=== PATIENT | male | born 1960 | race Caucasian/White ===

== ENCOUNTER 2018-04-04 00:04 | Inpatient (IN) | payer SELFPAY ==
[~2018-04-04] VITALS: Ht 170.2 cm; Wt 85.3 kg
--- NOTE | 2018-04-04 00:15 | NUR ---
To room 1A. Patient BIB ambulance from [facility] DX: AMS. Last well known time unknown. Patient able to state first name only. Unable to answer any other questions. Follows simple commands such as squeeze RN's hands; buyer assistant weak. Seen and evaluated by Dr. Dougherty.
[2018-04-04 00:48] LABS: BASOPHILS # (AUTO) 0.1 K/uL (0.0-8.0); BASOPHILS % (AUTO) 0.6 % (0.0-2.0); HEMATOCRIT 45.1 % (36.7-47.1); HEMOGLOBIN 15.2 g/dL (12.5-16.3); MEAN CORPUSCULAR HEMOGLOBIN 30.9 uug (23.8-33.4); MEAN CORPUSCULAR HGB CONC 34 g/dL (32.5-36.3); MEAN CORPUSCULAR VOLUME 91.4 fL (73.0-96.2); MONOCYTES # (AUTO) 1.7 K/uL (2.0-10.0); MONOCYTES % (AUTO) 11.1 % (0.0-11.0); NEUTROPHILS # (AUTO) 11.5 K/uL (1.8-8.9); NEUTROPHILS % (AUTO) 75.3 % (38.5-71.5); PLATELET COUNT (AUTO) 281 K/uL (152-348); RED BLOOD CELL COUNT(AUTO) 4.93 MIL/uL (4.06-5.63); WHITE BLOOD COUNT (AUTO) 15.3 K/uL (3.6-10.2)
[2018-04-04 01:02] LABS: ALANINE AMINOTRANSFERASE 28 U/L (16-63); ALKALINE PHOSPHATASE 112 U/L (50-136); ASPARTATE AMINOTRANSFERASE 34 U/L (15-37); BILIRUBIN,DIRECT 0.2 mg/dL (0.0-0.2); CARBON DIOXIDE 25 mmol/L (21-32); CHLORIDE 109 mmol/L (98-107); GLUCOSE 148 mg/dL (74-106); POTASSIUM 3.8 mmol/L (3.5-5.1); TOTAL PROTEIN, SERUM 8.8 g/dL (6.4-8.2); UREA NITROGEN, BLOOD 29 mg/dL (7-18)
[2018-04-04 01:09] LABS: THYROID STIMULATING HORMONE 1.848 mIU/mL (0.358-3.740)
--- NOTE | 2018-04-04 01:30 | NUR ---
Merrill catherer F#16 inserted aseptically. Urine specimen obtained and sent to lab. Noted skin excoriation to perineal, scrotum and both groins.
--- NOTE | 2018-04-04 01:35 | NUR ---
Dr. Dougherty informed of skin excoriation. Skin care provided.
[2018-04-04] MEDS ORDERED: HALOPERIDOL LACTATE 5 MG/1 ML VIAL IV ONE (01:45)
[2018-04-04] MEDS ORDERED: IV NORMAL SALINE 1000 ML BAG IV ONE (01:45)
[2018-04-04] MEDS ORDERED: diphenhydrAMINE 50 MG/1 ML VIAL IV ONE (01:45)
--- NOTE | 2018-04-04 01:45 | NUR ---
Patient agitated; trying to get out of bed. Uses profanity. Safety and fall precautions maintained. Reoriented PRN. Dr. Dougherty aware. Medicated with Haldol and Benadryl IV.
[2018-04-04] MEDS ORDERED: diphenhydrAMINE 50 MG/1 ML VIAL ONE (01:46)
[2018-04-04] MEDS ORDERED: HALOPERIDOL LACTATE 5 MG/1 ML VIAL ONE (01:47)
[2018-04-04 01:50] LABS: ETHANOL < 3 MG/DL (0-0)
[2018-04-04 02:05] LABS: *BLOOD, URINE 1+ (NEGATIVE); *COLOR,URINE AMBER (YELLOW); *KETONES,URINE 1+ (NEGATIVE); *PROTEIN,URINE 2+ (NEGATIVE); *UROBILINOGEN,URINE 0.2 E.U./dl (NORMAL); LEUKOCYTE ESTERASE ,URINE NEGATIVE (NEGATIVE); NITRITE, URINE NEGATIVE (NEGATIVE); PH,URINE 5.5 (5.0-8.0); UGLUCOSE NEGATIVE (NEGATIVE)
[2018-04-04] MEDS ORDERED: ALBU8.5H8 IH (02:06)
[2018-04-04] MEDS ORDERED: RANI150T8 PO (02:06)
[2018-04-04] MEDS ORDERED: MULT-15 PO (02:06)
[2018-04-04] MEDS ORDERED: LORA10TA7 PO (02:06)
[2018-04-04] MEDS ORDERED: HALO5TAB PO (02:06)
[2018-04-04] MEDS ORDERED: OMEG1CAP40 PO (02:06)
[2018-04-04] MEDS ORDERED: DOCU100T PO (02:06)
[2018-04-04] MEDS ORDERED: FLUT16SP NS (02:06)
[2018-04-04] MEDS ORDERED: THIA100T13 PO (02:06)
[2018-04-04] MEDS ORDERED: QUET200T PO (02:06)
[2018-04-04] MEDS ORDERED: ASPI-605 PO (02:06)
[2018-04-04] MEDS ORDERED: POLY10DR3 OP (02:06)
[2018-04-04] MEDS ORDERED: MOME13HF IH (02:06)
[2018-04-04 02:07] LABS: *BILIRUBIN,URIN 1+ (NEGATIVE); *CLARITY,URINE HAZY (CLEAR)
--- NOTE | 2018-04-04 02:15 | NUR ---
Benadryl and Haldol effective.
[2018-04-04 02:24] LABS: BACTERIA,URINE NONE SEEN /HPF (NONE SEEN); RBC,URINE 0-3 /HPF (0-3); SQUAMOUS EPITHELIAL CELL,UR MODERATE /HPF (NONE SEEN)
[2018-04-04 02:25] LABS: MUCUS,URINE MANY /LPF (0-FEW)
[2018-04-04 02:30] LABS: *AMPHETAMINE, URINE NEGATIVE (NEGATIVE); *BARBITURATE, URINE NEGATIVE (NEGATIVE); *CANNABINOID, URINE NEGATIVE (NEGATIVE); *COCCAINE, URINE NEGATIVE (NEGATIVE); *OPIATE, URINE NEGATIVE (NEGATIVE); *PHENCYCLIDINE SCREEN,URINE NEGATIVE (NEGATIVE)
--- NOTE | 2018-04-04 02:40 | NUR ---
Dr. Johnson notified of patient's admission. Spoke with Dr. Dougherty. Will admit to Telemetry.
--- NOTE | 2018-04-04 03:04 | NUR ---
SBAR report given to Radhames BENITO.
--- NOTE | 2018-04-04 03:20 | NUR ---
Pt. admitted to 207, under care of Dr. Johnson. DX: AMS. Belongs List completed
[2018-04-04 04:00] VITALS: BP 155/67
[2018-04-04] MEDS ORDERED: HALOPERIDOL LACTATE 5 MG/1 ML VIAL IM ONE (04:30)
[2018-04-04] MEDS ORDERED: ONDANSETRON 4 MG/2 ML VIAL IV PRN (04:30)
--- NOTE | 2018-04-04 04:30 | NUR ---
In from ER via gurney, 57 y/o male patient admitted to Telemetry Dx. Altered Mental Status. Patient awake, confused & agitated, no SOB noted. phototypesetting equipment monitor applied, sinus tachy w/ HR 100 bpm on Tele. Vital signs WNL. Initial assessment done, severe redness on perineal/groin area noted, see picture in chart. Sponge bath provided, kept red vatheter in place & secured. Uncontrollable & uncooperative w/ care. Attempted to jump out of bed, patient stated "I'm hungry I want to go home". Offered tuna sandwich & juice, patient tolerated. Patient became more agitated & combative post meal. Uncontrollable behavior noted, HR 150- 180s, attempted to jump out of bed, stating he want to smoke. Paged Dr. Johnson for admission orders, & notified about patient's current behavior. Orders received. Haldol 2.5 mg IM administered & monitored, O2 2 L/NC applied. Safety precaution observed.
--- NOTE | 2018-04-04 05:44 | NUR ---
Patient asleep at this time, A-fib 120's on the monitor. MD notified, to do further orders in AM.
[2018-04-04 06:20] LABS: BASOPHILS % (AUTO) 0.4 % (0.0-2.0); EOSINOPHILS % (AUTO) 0.1 % (0.0-7.0); HEMATOCRIT 42.4 % (36.7-47.1); HEMOGLOBIN 14.1 g/dL (12.5-16.3); LYMPHOCYTES # (AUTO) 1.8 K/uL (20.0-40.0); LYMPHOCYTES % (AUTO) 14.3 % (20.5-51.5); MEAN CORPUSCULAR HEMOGLOBIN 30.4 uug (23.8-33.4); MEAN CORPUSCULAR HGB CONC 33 g/dL (32.5-36.3); MEAN CORPUSCULAR VOLUME 91.7 fL (73.0-96.2); MONOCYTES # (AUTO) 1.5 K/uL (2.0-10.0); MONOCYTES % (AUTO) 11.9 % (0.0-11.0); NEUTROPHILS # (AUTO) 9.1 K/uL (1.8-8.9); NEUTROPHILS % (AUTO) 73.3 % (38.5-71.5); PLATELET COUNT (AUTO) 246 K/uL (152-348); RED BLOOD CELL COUNT(AUTO) 4.62 MIL/uL (4.06-5.63); WHITE BLOOD COUNT (AUTO) 12.4 K/uL (3.6-10.2)
[2018-04-04 06:32] LABS: CREATININE 1.2 mg/dL (0.6-1.3); MAGNESIUM 2.3 mg/dL (1.8-2.4); PHOSPHOROUS 2.7 mg/dL (2.5-4.9); POTASSIUM 3.1 mmol/L (3.5-5.1)
--- NOTE | 2018-04-04 06:42 | NUR ---
Patient awake now, agitated trying to jump out of bed. High risk for fall patient needs 1:1 sitter for patient's safety.
[2018-04-04] MEDS ORDERED: HALOPERIDOL 5 MG TABLET PO PRN (07:30)
[2018-04-04] MEDS ORDERED: ALBUTEROL SULFATE 2.5 MG/3 ML NEBU NEB PRN (07:30)
[2018-04-04] MEDS ORDERED: DOCUSATE SODIUM 100 MG CAPSULE PO PRN (07:30)
[2018-04-04] MEDS ORDERED: HOME MED MISCELLANEOUS XX SCH ×2 (07:30)
[2018-04-04] MEDS: OMEGA-3 FATTY ACIDS/FISH OIL CAPSULE PO SCH (07:49)
[2018-04-04] MEDS: LORATADINE 10 MG TABLET PO SCH (07:49)
[2018-04-04] MEDS: FAMOTIDINE 20 MG TABLET PO SCH ×2 (07:49→20:15)
[2018-04-04] MEDS: MULTIVITAMINS,THERAPEUTIC TABLET PO SCH (07:49)
[2018-04-04] MEDS: QUETIAPINE FUMARATE 200 MG TABLET PO SCH ×2 (07:49→20:15)
[2018-04-04] MEDS: ASPIRIN EC 81 MG TABLET.DR PO SCH (07:49)
[2018-04-04] MEDS: Z GUARD REMEDY PASTE 57 GM TUBE TOP SCH ×2 (07:50→19:44)
[2018-04-04] MEDS: THIAMINE HCL 100 MG TABLET PO SCH (07:50)
--- NOTE | 2018-04-04 08:31 | NUR ---
12 LEAD EKG DONE FOR HR 140-150/MIN. ekg confriemed rapid atrial fib, call to Dr Johnson. orders received. patient status changed to FRED. Addendum: 04/04/18 at 0831 by GREYSON JACKMAN RN Amended: Links added.
[2018-04-04] MEDS ORDERED: DILTIAZEM HCL 25 MG IV IV ONE ×2 (08:45→11:30)
--- NOTE | 2018-04-04 08:52 | NUR ---
cardizem 5 mg IV given. for hr 140 afib Addendum: 04/04/18 at 0852 by GREYSON JACKMAN RN Amended: Links added.
--- NOTE | 2018-04-04 08:53 | NUR ---
main IV fluid 1/2 NS started at 55 ml/hr via left wrist IV
[2018-04-04] MEDS ORDERED: DILTIAZEM HCL 60 MG TABLET PO SCH ×2 (09:00→14:00)
--- NOTE | 2018-04-04 09:00 | NUR ---
seen by dr de la cruz/ orders received.
[2018-04-04] MEDS: POTASSIUM CHLORIDE 50 ML IV SCH ×2 (09:09→10:27)
[2018-04-04] MEDS: IV 1/2NS 1000 ML 1,000 ML IV PRN (09:09)
[2018-04-04] MEDS: FLUTICASONE PROP NASAL SPRAY 16 GM BOTTLE NS SCH (09:10)
--- NOTE | 2018-04-04 09:30 | NUR ---
k replacement total 20meq kcl started for k 3.1 Addendum: 04/04/18 at 0930 by GREYSON JACKMAN RN Amended: Links added.
--- NOTE | 2018-04-04 11:24 | NUR ---
heart monitor remains afib with rvr up to 150/min. several calls to Dr Johnson made but unable to get through. charge nurse Anatoliy noel. will access [facility] cell phone if possible. Nando Harry and Salomón assistant housekeeping manager made aware as well. Addendum: 04/04/18 at 1125 by GREYSON JACKMAN RN Amended: Links added.
--- NOTE | 2018-04-04 11:38 | NUR ---
dr de la cruz called back . orders received for Cardzem 10mg IV and to call dr Gerard for cardiac consult. dr bowles called and order received for amiodarone bolus and drip per protocol Addendum: 04/04/18 at 1138 by GREYSON JACKMAN RN Amended: Links added.
[2018-04-04] MEDS ORDERED: AMIODARONE HCL IV 150 MG in IV DEXTROSE 5% 100 ML IV ONE (11:45)
[2018-04-04] MEDS ORDERED: AMIODARONE HCL IV 900 MG in IV DEXTROSE 5% 482 ML IV PRN (11:45)
--- NOTE | 2018-04-04 12:30 | NUR ---
IV left wrist leaking/removed. another IV#20 inserted via left hand. Addendum: 04/04/18 at 1313 by GREYSON JACKMAN RN Amended: Links added. Addendum: 04/04/18 at 1315 by GREYSON JACKMAN RN Amended: Links added.
--- NOTE | 2018-04-04 12:42 | NUR ---
cardizem 10 mg given IV for persistent afibv flutter. Addendum: 04/04/18 at 1312 by GREYSON JACKMAN RN Amended: Links added. Addendum: 04/04/18 at 1313 by GREYSON JACKMAN RN Amended: Links added. Addendum: 04/04/18 at 1315 by GREYSON JACKMAN RN Amended: Links added.
--- NOTE | 2018-04-04 12:45 | NUR ---
amiodarone 150mg IV bolus given IV and followed by drip 1mg/min Addendum: 04/04/18 at 1315 by GREYSON JACKMAN RN Amended: Links added.
[2018-04-04] MEDS ORDERED: NORMAL SALINE FLUSH 10 ML DISP.SYRIN IV PRN (13:30)
--- NOTE | 2018-04-04 13:35 | NUR ---
CONVERTED BACK TO SINUS RHYTHM 120/70/hr 87. AMIODARONE DRIP CONTINUED AT 1MG/MIN Addendum: 04/04/18 at 1737 by GREYSON JACKMAN RN Amended: Links added.
--- NOTE | 2018-04-04 13:39 | NUR ---
WOUND CARE CONSULT: PT PRESENTS WITH RED RASH TO GROIN FOLDS AND PERINEUM, PRESENT ON ADMISSION. PT HAS LARIOS CATH. RECOMMENDATIONS MADE FOR SKIN CARE AND PROTECTION. DISCUSSED WITH NURSING STAFF. WILL SEE PRN. LEAL IN AGREEMENT WITH PLAN OF CARE. Addendum: 04/04/18 at 1341 by JOHN GODOY RN Amended: Links added.
[2018-04-04] MEDS: NORMAL SALINE FLUSH 10 ML DISP.SYRIN IV SCH ×2 (13:49→20:15)
--- NOTE | 2018-04-04 15:04 | NUR ---
new PICC line inserted via juan antonio by Hailey PICC line THONG. placement confirmed with a chest xray
[2018-04-04] MEDS: FLUTICASONE/VILANTEROL 1 EACH BLST.W.DEV INH SCH (15:24)
[2018-04-04] MEDS: CLOTRIMAZOLE/BETAMET DIPROP CREAM 15 GM TUBE TOP SCH ×2 (15:24→19:46)
[2018-04-04 16:00] VITALS: BP 122/71
--- NOTE | 2018-04-04 18:54 | NUR ---
amiodarone drip decreased down to 0.5mg/min per protocol
--- NOTE | 2018-04-04 19:13 | NUR ---
SHIFT REPORT given to Татьяна RN Addendum: 04/04/18 at 1913 by GREYSON JACKMAN RN Amended: Links added.
[2018-04-04 20:00] VITALS: BP 133/75
--- NOTE | 2018-04-04 20:00 | NUR ---
Received patient resting in bed, calmer at this time but still attempting removing IV lines. No distress noted. Patient currently Sinus rhythm 70's on the monitor, on Cordarone drip 0.5mg/min per protocol via right upper arm PICC line. Vital signs WNL. 1:1 sitter in room for patient's safety.
[2018-04-04] MEDS: ACETAMINOPHEN 325 MG TABLET PO PRN (20:15)
--- NOTE | 2018-04-04 21:30 | NUR ---
Awake & agitated, routine Seroquel night meds given.
[2018-04-05] VITALS (8 sets, daily range): BP systolic 119–160; BP diastolic 68–95
[2018-04-05] MEDS: NORMAL SALINE FLUSH 10 ML DISP.SYRIN IV SCH ×3 (06:22→21:08)
--- NOTE | 2018-04-05 06:26 | NUR ---
Patient resting comfortably, sinus rhythm on the monitor. Amiodarone drip per protocol to end at 11:30 Am today. Vital signs are stable.
[2018-04-05 07:59] LABS: BASOPHILS # (AUTO) 0.1 K/uL (0.0-8.0); BASOPHILS % (AUTO) 0.8 % (0.0-2.0); EOSINOPHILS % (AUTO) 0.3 % (0.0-7.0); HEMATOCRIT 38.9 % (36.7-47.1); HEMOGLOBIN 12.9 g/dL (12.5-16.3); LYMPHOCYTES # (AUTO) 1.3 K/uL (20.0-40.0); MEAN CORPUSCULAR HEMOGLOBIN 31.1 uug (23.8-33.4); MEAN CORPUSCULAR HGB CONC 33 g/dL (32.5-36.3); MEAN CORPUSCULAR VOLUME 93.8 fL (73.0-96.2); MONOCYTES # (AUTO) 0.7 K/uL (2.0-10.0); MONOCYTES % (AUTO) 8.8 % (0.0-11.0); NEUTROPHILS # (AUTO) 5.5 K/uL (1.8-8.9); NEUTROPHILS % (AUTO) 73.1 % (38.5-71.5); PLATELET COUNT (AUTO) 216 K/uL (152-348); RED BLOOD CELL COUNT(AUTO) 4.14 MIL/uL (4.06-5.63); WHITE BLOOD COUNT (AUTO) 7.6 K/uL (3.6-10.2)
[2018-04-05 08:09] LABS: CREATININE 0.8 mg/dL (0.6-1.3); POTASSIUM 3.8 mmol/L (3.5-5.1)
[2018-04-05] MEDS: FLUTICASONE PROP NASAL SPRAY 16 GM BOTTLE NS SCH (08:14)
[2018-04-05] MEDS: OMEGA-3 FATTY ACIDS/FISH OIL CAPSULE PO SCH (08:14)
[2018-04-05] MEDS: ASPIRIN EC 81 MG TABLET.DR PO SCH (08:14)
[2018-04-05] MEDS: FLUTICASONE/VILANTEROL 1 EACH BLST.W.DEV INH SCH (08:14)
[2018-04-05] MEDS: QUETIAPINE FUMARATE 200 MG TABLET PO SCH ×2 (08:14→20:03)
[2018-04-05] MEDS: THIAMINE HCL 100 MG TABLET PO SCH (08:14)
[2018-04-05] MEDS: LORATADINE 10 MG TABLET PO SCH (08:14)
[2018-04-05] MEDS: FAMOTIDINE 20 MG TABLET PO SCH ×2 (08:14→20:03)
[2018-04-05] MEDS: MULTIVITAMINS,THERAPEUTIC TABLET PO SCH (08:15)
[2018-04-05] MEDS: Z GUARD REMEDY PASTE 57 GM TUBE TOP SCH ×2 (08:15→20:03)
[2018-04-05] MEDS: CLOTRIMAZOLE/BETAMET DIPROP CREAM 15 GM TUBE TOP SCH ×2 (08:16→20:03)
[2018-04-05] MEDS: IV 1/2NS 1000 ML 1,000 ML IV PRN (10:35)
[2018-04-05] MEDS ORDERED: diphenhydrAMINE 25 MG CAP PO PRN (20:00)
--- NOTE | 2018-04-05 20:00 | NUR ---
Received patient laying comfortably in bed. No acute distress noted. Patient is awake but pleasantly confused. He is on RA. TELE SR at 70. Noted facial redness. Merrill cath draining yellow clear urine. Noted perineal redness. Safety initiated. Call light within reach. Per AM nurse, patient is able to walk to the restroom with 1 person assist. Unsteady gait. Room is left clutter free. Bed in low and locked position. Bed alarm on. Will closely monitor.
--- NOTE | 2018-04-05 20:00 | NUR ---
PATIENT AWAKE IN BED. ALERT TO SELF ONLY. CONFUSED AND DISORIENTED, BUT PLEASANT WHEN APPROACHED. COOPERATIVE WITH CARE. NEEDS REDIRECTION BUT ABLE TO FOLLOW SIMPLE DIRECTIONS WELL. 1:1 SITTER AT BEDSIDE FOR SAFETY. RECHECKED PATIENTS BLOOD PRESSURE 147/91. ALL OTHER VSS. PATIENT DENIES PAIN OR DISCOMFORT. NO FACIAL GRIMACE NOTED. ON TELE SR. NO SOB NOTED. ON RA SATING 95%. F/C INTACT AND PATENT, DRAINING YELLOW URINE. HEPLOCK NOTED TO LEFT HAND, SWOLLEN, RED AND INFILTRATED. REMOVED. PATIENT IS PICC LINE NOTED TO LEFT UPPER ARM, INTACT, COVERED, PER RN. BED ALARM ON. CALL LIGHT IN REACH. DVT PUMPS IN PLACE. ALL NEEDS ATTENDED. WILL CONTINUE TO MONITOR AND ASSESS. Addendum: 04/05/18 at 2045 by BRE KELLY LVN *CLARIFICATION-PATIENT "HAS" PICC LINE...
--- NOTE | 2018-04-05 20:00 | NUR ---
PICC line double lumen on the right upper arm, flushing well. Patent and intact.
[2018-04-05] MEDS: HALOPERIDOL 5 MG TABLET PO PRN (22:46)
--- NOTE | 2018-04-05 23:00 | NUR ---
Patient was restless. He states pain on the penile area. Red care provided. Removed red because it was not draining and patient kept complaining of pain. Re-inserted a new red. Tolerated well. Will continue to monitor.
[2018-04-06] MEDS: ACETAMINOPHEN 325 MG TABLET PO PRN ×2 (00:45→07:53)
[2018-04-06 04:06] VITALS: BP 136/85
--- NOTE | 2018-04-06 05:51 | NUR ---
Patient slept intermittently t/o shift. 1:1 sitter at bedside. Merrill was removed because patient expressed discomfort not relieved by pain medication. DW charge Nurse. Patient is urinating well on the urinal. The patient remains pleasantly confused. TELE SR. PICC line on the right upper arm patent and intact. Turned and repositioned Q2H, perineal care provided. Vital signs stable. Safety and comfort measures maintained t/o shift. All meds given as ordered. All needs met.
[2018-04-06] MEDS: NORMAL SALINE FLUSH 10 ML DISP.SYRIN IV SCH ×3 (05:58→22:21)
[2018-04-06] MEDS: QUETIAPINE FUMARATE 200 MG TABLET PO SCH ×2 (07:53→20:54)
[2018-04-06] MEDS: OMEGA-3 FATTY ACIDS/FISH OIL CAPSULE PO SCH (07:53)
[2018-04-06] MEDS: MULTIVITAMINS,THERAPEUTIC TABLET PO SCH (07:53)
[2018-04-06] MEDS: THIAMINE HCL 100 MG TABLET PO SCH (07:53)
[2018-04-06] MEDS: LORATADINE 10 MG TABLET PO SCH (07:53)
[2018-04-06] MEDS: ASPIRIN EC 81 MG TABLET.DR PO SCH (07:54)
[2018-04-06 08:00] VITALS: BP 157/96
[2018-04-06] MEDS: FLUTICASONE/VILANTEROL 1 EACH BLST.W.DEV INH SCH (08:00)
[2018-04-06] MEDS: FLUTICASONE PROP NASAL SPRAY 16 GM BOTTLE NS SCH (08:01)
[2018-04-06] MEDS: FAMOTIDINE 20 MG TABLET PO SCH ×2 (08:03→20:53)
[2018-04-06] MEDS: Z GUARD REMEDY PASTE 57 GM TUBE TOP SCH ×2 (08:19→20:54)
[2018-04-06] MEDS: CLOTRIMAZOLE/BETAMET DIPROP CREAM 15 GM TUBE TOP SCH ×2 (08:19→20:54)
[2018-04-06 11:52] VITALS: BP 116/76
[2018-04-06 16:00] VITALS: BP 152/90
[2018-04-06] MEDS: DILTIAZEM HCL CD 120 MG CAP.SR.24H PO SCH (16:38)
--- NOTE | 2018-04-06 19:20 | NUR ---
RECEIVED SHIFT REPORT FROM THONG VÁZQUEZ. PT RESTING IN BED. DENIES PAIN, C/P, SOB, N/V. PT IS NSR ON TELE MONITORING. PT HAS A SINGLE LUMEN PICC LINE, SALINE LOCKED, RUE. BED IN LOW AND LOCKED POSITION WITH BILATERAL UPPER SIDERAILS UP. CALL LIGHT WITHIN REACH. 1:1 SITTER AT BEDSIDE FOR SAFETY. WILL CONTINUE TO MONITOR.
[2018-04-06 19:27] VITALS: BP 129/78
[2018-04-07 00:43] VITALS: BP 132/79
[2018-04-07] MEDS: HALOPERIDOL 5 MG TABLET PO PRN (02:06)
--- NOTE | 2018-04-07 02:10 | NUR ---
NOTIFIED BY 1:1 SITTER, JONE ENNIS, PT PULLED OUT RUE PICC LINE. UPON ASSESSMENT, RUE DOUBLE LUMEN PICC LINE PULLED OUT BY PT. PRESSURE APPLIED TO PICC LINE SITE, NO BLEEDING NOTED. PICC LINE TIP INTACT UPON ASSESSMENT. PT IS AGITATED AND VERBALLY AGGRESSIVE. PRN HALDOL ADMIN FOR AGITATION. 1:1 SITTER NOTIFIED TO MONITOR PT CLOSELY FOR SAFETY PRECAUTIONS. APPROPRIATE PERSONNEL NOTIFIED.
[2018-04-07] MEDS: NORMAL SALINE FLUSH 10 ML DISP.SYRIN IV SCH ×2 (05:27→13:05)
[2018-04-07 06:54] VITALS: BP 155/89
--- NOTE | 2018-04-07 07:00 | NUR ---
NOTIFIED DR. CRUZ PT PULLED OUT PICC LINE. PT RESTING IN BED. NO SIGNS OF BLEEDING FROM PICC LINE SITE. BED IN LOW AND LOCKED POSITION WITH BILATERAL UPPER SIDERAILS UP. CALL LIGHT WITHIN REACH. 1:1 SITTER AT BEDSIDE.
[2018-04-07] MEDS ORDERED: CLOT15CR36 TOP (07:29)
[2018-04-07] MEDS ORDERED: DILT-32 PO (07:29)
[2018-04-07] MEDS ORDERED: MENT71OI TOP (07:29)
--- NOTE | 2018-04-07 07:32 | NUR ---
Patient resting comfortably in bed at this time. Sitter at bedside for safety. No IV-access at this time, MD aware. Discharge today. Reorientation will be provided. Stable condition. No s/s of distress. SR on telemetry. Bed in locked/low position, side rails upx2, bed alarm on. Will monitor throughout shift.
[2018-04-07 07:34] VITALS: BP 161/90
[2018-04-07] MEDS: FLUTICASONE PROP NASAL SPRAY 16 GM BOTTLE NS SCH (08:10)
[2018-04-07] MEDS: FLUTICASONE/VILANTEROL 1 EACH BLST.W.DEV INH SCH (08:10)
[2018-04-07] MEDS: THIAMINE HCL 100 MG TABLET PO SCH (08:11)
[2018-04-07] MEDS: QUETIAPINE FUMARATE 200 MG TABLET PO SCH (08:11)
[2018-04-07] MEDS: OMEGA-3 FATTY ACIDS/FISH OIL CAPSULE PO SCH (08:11)
[2018-04-07] MEDS: LORATADINE 10 MG TABLET PO SCH (08:11)
[2018-04-07] MEDS: FAMOTIDINE 20 MG TABLET PO SCH (08:11)
[2018-04-07] MEDS: Z GUARD REMEDY PASTE 57 GM TUBE TOP SCH (08:12)
[2018-04-07] MEDS: CLOTRIMAZOLE/BETAMET DIPROP CREAM 15 GM TUBE TOP SCH (08:12)
[2018-04-07] MEDS: MULTIVITAMINS,THERAPEUTIC TABLET PO SCH (08:12)
[2018-04-07] MEDS: ASPIRIN EC 81 MG TABLET.DR PO SCH (08:12)
[2018-04-07] MEDS: DILTIAZEM HCL CD 120 MG CAP.SR.24H PO SCH (08:12)
[2018-04-07 12:19] VITALS: BP 158/84
[2018-04-07 14:15] VITALS: BP 117/75
--- NOTE | 2018-04-07 14:40 | NUR ---
PATIENT DISCHARGED AT THIS TIME BACK TO [facility]. VITALS STABLE, NO S/S OF DISTRESS. DISCHARGE PACKET COMPLETED, DISCHARGE INSTRUCTIONS/EDUCATION PROVIDED. NEW PRESCRIPTION PROVIDED TO PATIENT PER MD ORDERS. NO-ACCESS TO BE DISCONNECTED, IV BAND TAKEN OFF. BELONGINGS RETURNED. SAFETY MEASURES IMPLEMENTED. PATIENT TRANSPORTED OUT OF FACILITY TO [facility] BY PRIVATE TRANSPORTATION PROVIDED BY [facility]. PATIENT LEFT MEDICAL PREMISES SAFELY.
--- NOTE | 2018-04-07 14:41 | NUR ---
Patient was discharged to [facility] via private transportation. plant ecologist was discontinued. Patient is awake, alert and oriented. In no acute distress. Denies chest pain or SOB at this time. Discharge instructions given to patient, prescriptions, and discharge paperworks given to patient. Left the hospital in stable condition.
== END 2018-04-07 17:00 | DRG 640 ==
LOC: ER 00:13 → TELE 02:34 → TELE-TD 08:35 → TELE 04-05 13:29 → MED 04-07 14:48
PROVIDERS: ADMIT Internal Medicine; ATTEND Internal Medicine
PROC: 02HV33Z Insertion of Infusion Device into Superior Vena Cava, Percutaneous Approach (ICD-10-PCS; principal; 2018-04-04)
DX: E86.0 Dehydration (principal); G93.41 Metabolic encephalopathy; F03.91 Unspecified dementia, unspecified severity, with behavioral disturbance; F05 Delirium due to known physiological condition; I48.0 Paroxysmal atrial fibrillation; R41.82 Altered mental status, unspecified; I10 Essential (primary) hypertension; Z79.51 Long term (current) use of inhaled steroids; J44.9 Chronic obstructive pulmonary disease, unspecified
CPT/HCPCS: 36415; 70030-TC; 70450; 71045; 80307; 83605; 83735; 84100; 84443; 85025; 85730; 87040; 87086; 93005; 93307; 97116; 97530; A4663; C1751; G0480; J0282; J1200; J1630; J3480; J3490; J3535; J7030; J7060; Q0163

== ENCOUNTER 2018-06-11 12:59 | Inpatient (IN) | payer MEDICAID, OTHER ==
[~2018-06-11] VITALS: Ht 170.2 cm; Wt 80.3 kg
[~2018-06-11 12:59] MED LIST: ALBU8.5H8 IH; ASPI-605 PO; CLOT15CR36 TOP; DILT-32 PO; DOCU100T PO; FLUT16SP NS; HALO5TAB PO; LORA10TA7 PO; MENT71OI TOP; MOME13HF IH; MULT-15 PO; OMEG1CAP40 PO; QUET200T PO; RANI150T8 PO; THIA100T13 PO
[2018-06-11 13:31] LABS: BASOPHILS # (AUTO) 0.1 K/uL (0.0-8.0); BASOPHILS % (AUTO) 0.5 % (0.0-2.0); EOSINOPHILS % (AUTO) 0.2 % (0.0-7.0); HEMATOCRIT 46.7 % (36.7-47.1); HEMOGLOBIN 15.5 g/dL (12.5-16.3); LYMPHOCYTES # (AUTO) 1.6 K/uL (20.0-40.0); LYMPHOCYTES % (AUTO) 14.3 % (20.5-51.5); MEAN CORPUSCULAR HEMOGLOBIN 31.3 uug (23.8-33.4); MEAN CORPUSCULAR HGB CONC 33 g/dL (32.5-36.3); MEAN CORPUSCULAR VOLUME 94.3 fL (73.0-96.2); MONOCYTES # (AUTO) 1.3 K/uL (2.0-10.0); MONOCYTES % (AUTO) 10.9 % (0.0-11.0); NEUTROPHILS # (AUTO) 8.5 K/uL (1.8-8.9); NEUTROPHILS % (AUTO) 74.1 % (38.5-71.5); PLATELET COUNT (AUTO) 298 K/uL (152-348); RED BLOOD CELL COUNT(AUTO) 4.95 MIL/uL (4.06-5.63); WHITE BLOOD COUNT (AUTO) 11.5 K/uL (3.6-10.2)
[2018-06-11 13:39] LABS: POTASSIUM 3.7 mmol/L (3.5-5.1)
[2018-06-11 13:44] LABS: BILIRUBIN,DIRECT 0.1 mg/dL (0.0-0.2); BILIRUBIN,TOTAL 0.5 mg/dL (0.2-1.0); TOTAL PROTEIN, SERUM 8.4 g/dL (6.4-8.2)
[2018-06-11 13:45] LABS: *BILIRUBIN,URIN NEGATIVE (NEGATIVE); *BLOOD, URINE 2+ (NEGATIVE); *KETONES,URINE NEGATIVE (NEGATIVE); *PROTEIN,URINE 1+ (NEGATIVE); *UROBILINOGEN,URINE 0.2 E.U./dl (NORMAL); LEUKOCYTE ESTERASE ,URINE NEGATIVE (NEGATIVE); NITRITE, URINE NEGATIVE (NEGATIVE); PH,URINE 5.5 (5.0-8.0); UGLUCOSE NEGATIVE (NEGATIVE)
[2018-06-11 13:46] LABS: *CLARITY,URINE SLIGHTLY HAZY (CLEAR); *COLOR,URINE DARK YELLOW (YELLOW)
[2018-06-11 13:57] LABS: BACTERIA,URINE NONE SEEN /HPF (NONE SEEN); MUCUS,URINE FEW /LPF (0-FEW); SQUAMOUS EPITHELIAL CELL,UR MODERATE /HPF (NONE SEEN); WBC,URINE 0-3 /HPF (0-3)
[2018-06-11 13:58] LABS: URINE AMORPHOUS URATE FEW /HPF
--- NOTE | 2018-06-11 14:35 | NUR ---
PT OUT OF ER FOR CT.
[2018-06-11] MEDS ORDERED: VANCOMYCIN IV 1,000 MG in IV DEXTROSE 5% 250 ML IV ONE (15:15)
[2018-06-11] MEDS ORDERED: CEFTRIAXONE 2 G in IV DEXTROSE 5% 100 ML IV ONE (15:15)
[2018-06-11] MEDS ORDERED: LORAZEPAM 2 MG/1 ML VIAL IV ONE ×2 (15:15)
[2018-06-11] MEDS ORDERED: IV NORMAL SALINE 1000 ML BAG IV ONE (15:45)
[2018-06-11 16:03] LABS: ABG BASE EXCESS 2.9 mmol/L; ABG HCO3 27.6 mmol/L; ABG PCO2 42.4 mmHg (35.0-45.0); ABG PH 7.431 (7.350-7.450); ABG PO2 83.2 mmHg (75.0-100.0); ABG SITE LEFT RADIAL; ABG TOTAL HEMOGLOBIN 15.2 G/dL (13.5-18.0); COHb 1.5 % (0.5-1.5); MetHb 0.3 % (0.0-1.5); O2Hb 95.2 % (94.0-97.0)
[2018-06-11] MEDS ORDERED: LORAZEPAM 2 MG/1 ML VIAL ONE ×2 (16:12→16:19)
--- NOTE | 2018-06-11 16:12 | NUR ---
ROCEPHIN INFUSION CPOMPLETED AT 1600.
[2018-06-11] MEDS ORDERED: CEFTRIAXONE 1 G VIAL ONE (16:24)
[2018-06-11] MEDS ORDERED: VANCOMYCIN IV 200 ML ONE (16:29)
[2018-06-11 17:00] LABS: CSF GLUCOSE 93 mg/dL (40-70); CSF PROTEIN 52 mg/dL (15-45)
--- NOTE | 2018-06-11 17:15 | NUR ---
NEW PATIENT FROM ER TO ROOM 210 VS TAKEN STILL HIGH BP BUT NO FEVER ,RESPONSE TO PAIN STIMULI , OPEN EYE WHEN CALL OR TOUCH BUT NON VERBALIZES GEN VERY WEAK AND PALE SMALL BANDAGE AT LOWER BACK FROM SPINAL TAP WAS D/I KEEP FLAT IN BED ON ASPIRATION AND FALL PRECAUTION BED ALARM ON AND CALL LIGHT WITHIN REACH CLOSED OBSERVATION
[2018-06-11 17:30] VITALS: BP 166/104
--- NOTE | 2018-06-11 18:00 | NUR ---
DR GUILLEN WAS CALL AND MESSAGE LEFT FOR ORDERS
--- NOTE | 2018-06-11 18:40 | NUR ---
DR GUILLEN CALL BACK AND ORDER IN CHART IVF CONTINUE FROM ER LFA INFUSION WELL
[2018-06-11] MEDS ORDERED: HALOPERIDOL 5 MG TABLET PO PRN (19:00)
[2018-06-11] MEDS ORDERED: ALBUTEROL SULFATE 8 GM HFA.AER.AD IH PRN (19:00)
[2018-06-11] MEDS: QUETIAPINE FUMARATE 200 MG TABLET PO SCH (19:00)
[2018-06-11] MEDS ORDERED: Medication Not On Formulary EA (Docusate Sodium (Dok TABLET) 100 MG) PO PRN (19:00)
[2018-06-11] MEDS ORDERED: ALBUTEROL SULFATE 2.5 MG/3 ML NEBU NEB PRN (19:15)
[2018-06-11] MEDS ORDERED: DOCUSATE SODIUM 100 MG CAPSULE PO PRN (19:15)
[2018-06-11 20:07] VITALS: BP 132/83
--- NOTE | 2018-06-11 20:45 | NUR ---
Received pt resting in bed semi-fowlers position. Pt nonverbal, arousable to name call and touch. O2 sat 98% on 2L NC. Pt shows no s/s of acute distress. IV on left hand SL 22g intact. Night time PO medications held due to potential aspiration. Speech evaluation order acknowledged. Droplet precautions initiated. Environmental safety check. Bed on low locked position, side rails up x2. Call light within reach. Will monitor closely.
[2018-06-11] MEDS: FAMOTIDINE 20 MG TABLET PO SCH (21:00)
[2018-06-12 04:00] VITALS: BP 166/89
[2018-06-12] MEDS ORDERED: NITROGLYCERIN OINT 1 GM PACKET TP ONE (06:15)
--- NOTE | 2018-06-12 06:15 | NUR ---
Pt BP 177/95, HR 89. Dr. Chiquita MD notified. Pt shows no signs of acute distress at this time. Awaiting orders. Will continue to monitor closely.
--- NOTE | 2018-06-12 06:30 | NUR ---
Received order of Nitroglycerin ointment 1 inch one time dose from Dr. Chiquita MD. Administered medication as prescribed. Will continue to monitor closely.
[2018-06-12 06:41] LABS: BASOPHILS % (AUTO) 0.6 % (0.0-2.0); EOSINOPHILS # (AUTO) 0.1 K/uL (0.0-0.7); LYMPHOCYTES # (AUTO) 1.8 K/uL (20.0-40.0); LYMPHOCYTES % (AUTO) 23.1 % (20.5-51.5); MEAN CORPUSCULAR HEMOGLOBIN 31.7 uug (23.8-33.4); MEAN CORPUSCULAR HGB CONC 34 g/dL (32.5-36.3); MEAN CORPUSCULAR VOLUME 94.4 fL (73.0-96.2); MONOCYTES % (AUTO) 13.1 % (0.0-11.0); NEUTROPHILS # (AUTO) 4.8 K/uL (1.8-8.9); NEUTROPHILS % (AUTO) 62.2 % (38.5-71.5); PLATELET COUNT (AUTO) 252 K/uL (152-348); RED BLOOD CELL COUNT(AUTO) 4.14 MIL/uL (4.06-5.63)
[2018-06-12 06:42] LABS: CREATININE 0.7 mg/dL (0.6-1.3); POTASSIUM 3.4 mmol/L (3.5-5.1)
[2018-06-12 06:58] LABS: HEMATOCRIT 39.1 % (36.7-47.1); HEMOGLOBIN 13.1 g/dL (12.5-16.3); WHITE BLOOD COUNT (AUTO) 7.8 K/uL (3.6-10.2)
--- NOTE | 2018-06-12 07:15 | NUR ---
Pt slept intermittently throughout the night. Pt awake, nonverbal and confused. Unable to follow commands. At end of shift, pt became restless and pulled IV out. Droplet precautions maintained at all times. Kept pt clean and dry throughout shift. Environmental safety placed, bed in low locked position. Bed alarm on. Call light within reach. Will endorse continuity of care to day shift nurse.
--- NOTE | 2018-06-12 08:00 | NUR ---
BED SIDE SWALLOW EVAL COMPLETED PATIENT ABLE TO EAT APPLE SAUCE AND DRINK WATER WITHOUT COUGHING TOLERATED DUE MEDICATIONS IN APPLE SAUCE WILL CONTINUE TO OBSERVE.
[2018-06-12] MEDS: ASPIRIN EC 81 MG TABLET.DR PO SCH (08:35)
[2018-06-12] MEDS: OMEGA-3 FATTY ACIDS/FISH OIL CAPSULE PO SCH (08:35)
[2018-06-12] MEDS: LORATADINE 10 MG TABLET PO SCH (08:35)
[2018-06-12] MEDS: QUETIAPINE FUMARATE 200 MG TABLET PO SCH ×3 (08:35→18:31)
[2018-06-12] MEDS: FAMOTIDINE 20 MG TABLET PO SCH ×2 (08:35→20:21)
[2018-06-12] MEDS: MULTIVITAMINS,THERAPEUTIC TABLET PO SCH (08:35)
[2018-06-12] MEDS: DILTIAZEM HCL CD 120 MG CAP.SR.24H PO SCH (08:35)
[2018-06-12] MEDS: THIAMINE HCL 100 MG TABLET PO SCH (08:41)
[2018-06-12] MEDS: FLUTICASONE PROP NASAL SPRAY 16 GM BOTTLE NS SCH (08:56)
[2018-06-12] MEDS ORDERED: MULTIVITAMINS PO SCH (09:00)
[2018-06-12] MEDS ORDERED: DULERA 200 MCG/5 MCG INHALER INH SCH (09:00)
[2018-06-12] MEDS ORDERED: Medication Not On Formulary EA (Omega-3 Fatty Acids/Fish Oil (Omega 3 1,000 Mg Softgel) PO SCH (09:00)
[2018-06-12] MEDS: Z GUARD REMEDY PASTE 57 GM TUBE TOP SCH ×2 (09:19→20:22)
--- NOTE | 2018-06-12 09:49 | NUR ---
PHYSICAL THERAPY HERE TO SEE AND EVALUATE PATIENT PATIENT IS TOO SEDATED BLOOD PRESSURE AT THIS TIME IS 89/49 DR MANZANARES HERE AND SEEN PATIENT HE WILL OPEN EYES BUT WILL PROMPTLY FALL BACK ASLEEP STATED WILL HAVE THE PSYCH TO SEE AND EVALUATE PATIENT SINCE HE IS ON HEAVY DOSES OF SERROQUEL.
--- NOTE | 2018-06-12 10:00 | NUR ---
DR CRUZ HERE TO SEE PATIENT AND STATED THAT PATIENT DOES NOT NEED DROPLET ISOLATION CALLED THE INFECTION CONTROL PRACTITIONER AND LEFT HIM A MESSAGE AWAITING FOR [facility] POLICY
[2018-06-12] MEDS ORDERED: POTASSIUM CHLORIDE 10 MEQ TAB.PRT.SR PO ONE (10:30)
[2018-06-12 11:34] VITALS: BP 99/66
[2018-06-12] MEDS: ENOXAPARIN SODIUM 40 MG/0.4 ML DISP.SYRIN SQ SCH (11:55)
[2018-06-12] MEDS: FLUTICASONE/VILANTEROL 1 EACH BLST.W.DEV INH SCH (13:20)
--- NOTE | 2018-06-12 13:30 | NUR ---
INFECTION CONTROL PRACTITIONER HERE AND REVIEWED THE RESULT OF THE SPINAL TAP FLUID AND STATED TO DISCONTINUE ISOLATION AND NOTED
--- NOTE | 2018-06-12 14:00 | NUR ---
SLT HERE FOR EVALUATION BUT PATIENT IS TOO SEDATED AT THIS TIME
[2018-06-12 15:43] VITALS: BP 125/81
--- NOTE | 2018-06-12 18:37 | NUR ---
SERROQUEL WAS HELD EARLIER BECAUSE PATIENT IS TOO SEDATED BUT NOW HE IS AWAKE AND TRYING TO GET OUT OF BED SO SERROQUEL GIVEN UNSCHEDULED AT THIS TIME CONFUSED AND DISORIENTED WILL CONTINUE TO OBSERVE.
[2018-06-12 20:00] VITALS: BP 101/48
--- NOTE | 2018-06-12 20:00 | NUR ---
PATIENT IS ASLEEP BUT EASILY AROUSABLE, NO S/S OF PAIN OR ACUTE DISTRESS ON ASSESSMENT. SAFETY MEASURES INITIATED, BED ALARM ON WILL CONTINUE TO MONITOR PATIENT
[2018-06-12 23:01] LABS: THYROID STIMULATING HORMONE 2.553 mIU/mL (0.358-3.740)
[2018-06-13 04:44] VITALS: BP 131/83
--- NOTE | 2018-06-13 06:22 | NUR ---
PATIENT SLEPT WELL ON THIS SHIFT, CONTINUES TO BE CONFUSED. NO S/S OF PAIN OR ACUTE DISTRESS ON THIS SHIFT. SAFETY MEASURES MAINTAINED AT ALL TIMES
--- NOTE | 2018-06-13 07:25 | NUR ---
RECEIVED PATIENT IN BED AWAKE CONFUSED AND DISORIENTED NON VERBAL REMOVED ALL OF HIS BED LINEN REAPPLIED TURNED REPOSITIONED HEELS FLOATED MADE COMFORTABLE AND WILL CONTINUE TO OBSERVE AND PROVIDE SAFE AND THERAPEUTIC ENVIRONMENT AT ALL TIMES.
[2018-06-13 07:52] LABS: BASOPHILS % (AUTO) 0.8 % (0.0-2.0); EOSINOPHILS # (AUTO) 0.2 K/uL (0.0-0.7); EOSINOPHILS % (AUTO) 2.3 % (0.0-7.0); HEMATOCRIT 39.8 % (36.7-47.1); HEMOGLOBIN 13.3 g/dL (12.5-16.3); LYMPHOCYTES # (AUTO) 1.7 K/uL (20.0-40.0); LYMPHOCYTES % (AUTO) 26.6 % (20.5-51.5); MEAN CORPUSCULAR HEMOGLOBIN 31.7 uug (23.8-33.4); MEAN CORPUSCULAR HGB CONC 34 g/dL (32.5-36.3); MEAN CORPUSCULAR VOLUME 94.6 fL (73.0-96.2); MONOCYTES # (AUTO) 0.7 K/uL (2.0-10.0); NEUTROPHILS # (AUTO) 3.9 K/uL (1.8-8.9); NEUTROPHILS % (AUTO) 59.3 % (38.5-71.5); PLATELET COUNT (AUTO) 244 K/uL (152-348); RED BLOOD CELL COUNT(AUTO) 4.21 MIL/uL (4.06-5.63); WHITE BLOOD COUNT (AUTO) 6.5 K/uL (3.6-10.2)
[2018-06-13 08:00] LABS: THYROID STIMULATING HORMONE 2.041 mIU/mL (0.358-3.740)
[2018-06-13 08:24] LABS: ALANINE AMINOTRANSFERASE 23 U/L (16-63); ALKALINE PHOSPHATASE 101 U/L (50-136); ASPARTATE AMINOTRANSFERASE 22 U/L (15-37); BILIRUBIN,TOTAL 0.5 mg/dL (0.2-1.0); CARBON DIOXIDE 29 mmol/L (21-32); CHLORIDE 109 mmol/L (98-107); CREATININE 0.7 mg/dL (0.6-1.3); GLUCOSE 95 mg/dL (74-106); MAGNESIUM 1.8 mg/dL (1.8-2.4); PHOSPHOROUS 2.9 mg/dL (2.5-4.9); POTASSIUM 3.2 mmol/L (3.5-5.1); TOTAL PROTEIN, SERUM 7.2 g/dL (6.4-8.2); UREA NITROGEN, BLOOD 11 mg/dL (7-18)
[2018-06-13] MEDS: OMEGA-3 FATTY ACIDS/FISH OIL CAPSULE PO SCH (08:38)
[2018-06-13] MEDS: THIAMINE HCL 100 MG TABLET PO SCH (08:39)
[2018-06-13] MEDS: LORATADINE 10 MG TABLET PO SCH (08:39)
[2018-06-13] MEDS: QUETIAPINE FUMARATE 200 MG TABLET PO SCH ×2 (08:39→16:27)
[2018-06-13] MEDS: ASPIRIN EC 81 MG TABLET.DR PO SCH (08:39)
[2018-06-13] MEDS: MULTIVITAMINS,THERAPEUTIC TABLET PO SCH (08:39)
[2018-06-13] MEDS: FAMOTIDINE 20 MG TABLET PO SCH ×2 (08:39→20:06)
[2018-06-13] MEDS: FLUTICASONE/VILANTEROL 1 EACH BLST.W.DEV INH SCH (08:40)
[2018-06-13] MEDS: Z GUARD REMEDY PASTE 57 GM TUBE TOP SCH ×2 (08:40→20:07)
[2018-06-13] MEDS: DILTIAZEM HCL CD 120 MG CAP.SR.24H PO SCH (08:41)
[2018-06-13] MEDS: ENOXAPARIN SODIUM 40 MG/0.4 ML DISP.SYRIN SQ SCH (08:46)
[2018-06-13] MEDS ORDERED: POTASSIUM CHLORIDE 20 MEQ TAB.PRT.SR PO ONE (09:00)
[2018-06-13 11:08] VITALS: BP 96/67
[2018-06-13] MEDS: FLUTICASONE PROP NASAL SPRAY 16 GM BOTTLE NS SCH (11:16)
--- NOTE | 2018-06-13 13:05 | NUR ---
PATIENT IS GETTING VERY AGITATED TRYING TO GET OUT OF BED REPOSITIONED SO MANY TIMES UNABLE TO REDIRECT AT RISKS FOR FALLS AND INJURIES MEDICATED WITH HALDOL ORDERED WILL CONTINUE TO OBSERVE.
[2018-06-13 15:46] VITALS: BP 141/92
--- NOTE | 2018-06-13 17:28 | NUR ---
MEDICATED WITH SERROQUEL ORDERED WITH SO MANY ATTEMPTS TO GET OUT OF BED SAFE ENVIRONMENT PROVIDED AT ALL TIMES.
--- NOTE | 2018-06-13 18:20 | NUR ---
Received patient lying in bed. Asleep, sedated but arouse to verbal stimuli. Alert to self only. mainly confused and disoriented. No sign or symptoms of pain or SOB noted. In no acute distress. Bed in low and lock position. Bed alarm on and call staples within reach.
--- NOTE | 2018-06-13 19:16 | NUR ---
Patient seen by Dr. Chen, but unable to assess patient due patient sedated. Per Dr. Monge, he will come back again tomorrow to assess patient.
[2018-06-13 19:17] VITALS: BP 148/98
[2018-06-14 03:14] VITALS: BP 143/88
--- NOTE | 2018-06-14 06:19 | NUR ---
Alert to self only. Mainly confused and disoriented. No sign or symptoms of pain or SOB noted. In no acute distress. No anxiety noted. Slept well last night. Safety measure maintained and call staples within reach.
--- NOTE | 2018-06-14 07:10 | NUR ---
PATIENT IN BED AWAKE, CONFUSED, DISORIENTED, NON VERBAL. CALL LIGHT IN REACH. ORIENTED PATIENT TO HOSPITAL AND NURSE NAME AND DATE. WILL CONTINUE TO OBSERVE AND PROVIDE SAFE, THERAPEUTIC ENVIRONMENT.
[2018-06-14] MEDS: LORATADINE 10 MG TABLET PO SCH (09:10)
[2018-06-14] MEDS: DILTIAZEM HCL CD 120 MG CAP.SR.24H PO SCH (09:14)
[2018-06-14] MEDS: ASPIRIN EC 81 MG TABLET.DR PO SCH (09:14)
[2018-06-14] MEDS: FAMOTIDINE 20 MG TABLET PO SCH ×2 (09:14→20:17)
[2018-06-14] MEDS: OMEGA-3 FATTY ACIDS/FISH OIL CAPSULE PO SCH (09:15)
[2018-06-14] MEDS: THIAMINE HCL 100 MG TABLET PO SCH (09:15)
[2018-06-14] MEDS: QUETIAPINE FUMARATE 200 MG TABLET PO SCH ×2 (09:16→17:25)
[2018-06-14] MEDS: MULTIVITAMINS,THERAPEUTIC TABLET PO SCH (09:16)
[2018-06-14] MEDS: ENOXAPARIN SODIUM 40 MG/0.4 ML DISP.SYRIN SQ SCH (09:18)
[2018-06-14] MEDS: FLUTICASONE PROP NASAL SPRAY 16 GM BOTTLE NS SCH (09:19)
[2018-06-14] MEDS: Z GUARD REMEDY PASTE 57 GM TUBE TOP SCH ×2 (09:20→20:17)
[2018-06-14] MEDS: FLUTICASONE/VILANTEROL 1 EACH BLST.W.DEV INH SCH (09:27)
[2018-06-14 11:45] VITALS: BP 131/78
--- NOTE | 2018-06-14 12:20 | NUR ---
SPOKE TO DR. CRUZ REGARDING THE CSF CULTURE RESULTS . LET HIM KNOW THAT CSF CULTURE IS GRAM POSITIVE COCCI. NO ORDERS GIVEN.
[2018-06-14 16:08] VITALS: BP 131/77
--- NOTE | 2018-06-14 18:10 | NUR ---
PATIENT IN BED SLEEPING. IV INSERTED TO RIGHT HAND AND FLUSHING WELL. VITAL SIGNS STABLE THROUGHOUT THE SHIFT. PATIENT DENIES ANY PAIN OR DISCOMFORT AT THIS TIME.
--- NOTE | 2018-06-14 19:20 | NUR ---
Received patient lying in bed. Asleep, but arouse to verbal and tactile stimuli. Alert to self only. Mainly confused and disoriented. No sign or symptoms of pain or SOB noted. iv site on right hand intact and patent. In no acute distress. Safety measure initiated and call staples within reach.
[2018-06-14 19:23] VITALS: BP 113/80
[2018-06-15 03:25] VITALS: BP 153/94
--- NOTE | 2018-06-15 06:15 | NUR ---
Alert to self only. Mainly confused and disoriented. Slept through out the night. No sign or symptoms of pain or SOB noted. In no acute distress. No behavioral issues noted. Safety measure maintained and call staples within reach.
[2018-06-15] MEDS: THIAMINE HCL 100 MG TABLET PO SCH (08:45)
[2018-06-15] MEDS: ASPIRIN EC 81 MG TABLET.DR PO SCH (08:45)
[2018-06-15] MEDS: LORATADINE 10 MG TABLET PO SCH (08:45)
[2018-06-15] MEDS: FAMOTIDINE 20 MG TABLET PO SCH ×2 (08:45→21:19)
[2018-06-15] MEDS: DILTIAZEM HCL CD 120 MG CAP.SR.24H PO SCH (08:45)
[2018-06-15] MEDS: FLUTICASONE/VILANTEROL 1 EACH BLST.W.DEV INH SCH (08:46)
[2018-06-15] MEDS: QUETIAPINE FUMARATE 100 MG TABLET PO SCH ×2 (08:46→16:21)
[2018-06-15] MEDS: FLUTICASONE PROP NASAL SPRAY 16 GM BOTTLE NS SCH (08:46)
[2018-06-15] MEDS: Z GUARD REMEDY PASTE 57 GM TUBE TOP SCH ×2 (08:47→21:19)
[2018-06-15] MEDS: ENOXAPARIN SODIUM 40 MG/0.4 ML DISP.SYRIN SQ SCH (08:57)
[2018-06-15] MEDS: OMEGA-3 FATTY ACIDS/FISH OIL CAPSULE PO SCH (08:59)
[2018-06-15] MEDS: MULTIVITAMINS,THERAPEUTIC TABLET PO SCH (08:59)
[2018-06-15] MEDS ORDERED: QUETIAPINE FUMARATE 200 MG TABLET PO SCH (09:00)
[2018-06-15 11:44] VITALS: BP 134/86
[2018-06-15] MEDS ORDERED: diphenhydrAMINE 25 MG/10 ML UDC PO PRN (13:15)
--- NOTE | 2018-06-15 13:30 | NUR ---
SBAR report received this morning, board updated. Pt assessed, AA0 to self, denies pain. no acute distress or SOB evident. Pt itching face occasionally, seen by [employer], Benadryl administered once as ordered. Pt compliant with routine medication administration, spitting out and refusing multi-vitamin and fish oil. Pt changed, clean and dry. All safety and comfort measures implemented. Call light within reach. Bed in locked and lowest position with side rails up x2. Will continue to monitor.
[2018-06-15 15:43] VITALS: BP 115/83
--- NOTE | 2018-06-15 18:15 | NUR ---
No change to Pt status during this shift. All comfort and safety needs promptly attended to. Pt compliant with medications, reports reduce itching to face since Benadryl administered. Will continue to monitor and endorse to oncoming shift stacker.
--- NOTE | 2018-06-15 19:06 | NUR ---
CLINICAL PHARMACY NOTE-VANCOMYCIN DOSING PER PHARMACY Subjective: To start vancomycin dosing on this patient for suspected infection(ID note: ? CSF+ staph sp. contamination) Objective: BUN/Scr 11/0.7(06/13) WBC 6.5(06/13) Temp 98.3 Ht 170.18cm Wt 80.286kg Assessment/Plan: Will start Vancomycin 1250mg IV every 10 hrs at 2100 today(first dose) and draw trough by 4th dose(not ordered yet) for expected trough around 15. Will monitor daily.
[2018-06-15 19:24] VITALS: BP 105/71
--- NOTE | 2018-06-15 19:50 | NUR ---
Received pt resting comfortably in bed. Arousable with name call and touch. Pt has episodes of restlessness and agitation. Pt shows no s/s of acute distress. Antibiotic therapy noted. Safety precautions and comfort measures implemented. Bed on low locked position. Call light within reach. Will continue to monitor and carry out all orders.
[2018-06-15] MEDS: VANCOMYCIN IV 1,250 MG in IV DEXTROSE 5% 500 ML IV SCH (21:17)
[2018-06-16 03:38] VITALS: BP 124/92
[2018-06-16] MEDS: VANCOMYCIN IV 1,250 MG in IV DEXTROSE 5% 500 ML IV SCH (06:54)
[2018-06-16] MEDS ORDERED: QUET100T PO (07:19)
--- NOTE | 2018-06-16 07:36 | NUR ---
patient resting comfortably in bed. attempts to get out of bed but unable to due to weakness. Obey commands, bed alarm on. a/ox1, will reorient throughout shift. abx running. Droplet isolation at this time. Requires clearance of droplet isolation from HERNANDO GREENBERG Nurse practitioner. stable condition, no signs of distress. bed alarm on, call light within reach of patient. bed in locked/low position, side rails up x3.
[2018-06-16] MEDS: FLUTICASONE/VILANTEROL 1 EACH BLST.W.DEV INH SCH (08:38)
[2018-06-16] MEDS: THIAMINE HCL 100 MG TABLET PO SCH (08:38)
[2018-06-16] MEDS: LORATADINE 10 MG TABLET PO SCH (08:38)
[2018-06-16] MEDS: DILTIAZEM HCL CD 120 MG CAP.SR.24H PO SCH (08:43)
[2018-06-16] MEDS: MULTIVITAMINS,THERAPEUTIC TABLET PO SCH (08:43)
[2018-06-16] MEDS: OMEGA-3 FATTY ACIDS/FISH OIL CAPSULE PO SCH (08:43)
[2018-06-16] MEDS: FLUTICASONE PROP NASAL SPRAY 16 GM BOTTLE NS SCH (08:43)
[2018-06-16] MEDS: ASPIRIN EC 81 MG TABLET.DR PO SCH (08:43)
[2018-06-16] MEDS: FAMOTIDINE 20 MG TABLET PO SCH (08:43)
[2018-06-16] MEDS: QUETIAPINE FUMARATE 100 MG TABLET PO SCH (08:43)
[2018-06-16] MEDS: ENOXAPARIN SODIUM 40 MG/0.4 ML DISP.SYRIN SQ SCH (08:45)
[2018-06-16] MEDS: Z GUARD REMEDY PASTE 57 GM TUBE TOP SCH (08:46)
--- NOTE | 2018-06-16 09:50 | NUR ---
CLINICAL PHARMACY NOTE-VANCOMYCIN DOSING PER PHARMACY Subjective: To continue vancomycin dosing on this patient for suspected infection(ID note: ? CSF+coag neg staph sp. contamination) Objective: BUN/Scr 11/0.7(06/13) WBC 6.5(06/13) Temp 97.5 Ht 170.18cm Wt 80.286kg Assessment/Plan: Will continue same dose of Vancomycin 1250mg IV every 10 hrs for today. 3rd dose due today at 1700. Plan to draw trough by 4th dose (ordered for 06/17 at 0230- RN has been informed to hold 0300 dose if vanco level is above 20 mcg/ml). Pharmacy will review the level in am & adjust the dose if needed.Will follow
[2018-06-16 11:18] VITALS: BP 125/82
--- NOTE | 2018-06-16 11:54 | NUR ---
06/16/2018 Called Estiven from [facility] ([phone]) he is aware that the patient has discharge orders back to [facility] today, he stated he would call back for a confirmation transportation time. Message was left to José Barrett at [phone] to inform him of discharge orders for today (Aure BENITO, case management).
--- NOTE | 2018-06-16 15:35 | NUR ---
PATIENT DISCHARGED AT THIS TIME IN STABLE CONDITION, NO SIGNS OF DISTRESS. DISCHARGED TO [facility]. DISCHARGE PACKET COMPLETED, COPY GIVEN TO [facility]. IV-ACCESS DISCONNECTED, ID-BAND TAKEN OFF. SAFETY MEASURES IMPLEMENTED. BELONGINGS RETURNED TO PATIENT. PATIENT PICKED UP BY GARCÍA (GENERAL MERCHANDISE MANAGER) FROM [facility] AND DEPARTED [facility] SAFELY.
== END 2018-06-16 15:35 | DRG 52 ==
LOC: ER 12:59 → MED 16:59
PROVIDERS: ADMIT Internal Medicine; ATTEND Internal Medicine
PROC: 009U3ZX Drainage of Spinal Canal, Percutaneous Approach, Diagnostic (ICD-10-PCS; principal; 2018-06-11)
DX: G92 Toxic encephalopathy (principal); F05 Delirium due to known physiological condition; R83.5 Abnormal microbiological findings in cerebrospinal fluid; B95.7 Other staphylococcus as the cause of diseases classified elsewhere; I48.91 Unspecified atrial fibrillation; R41.82 Altered mental status, unspecified; J44.9 Chronic obstructive pulmonary disease, unspecified; F03.90 Unspecified dementia, unspecified severity, without behavioral disturbance, psychotic disturbance, mood disturbance, and anxiety; E87.6 Hypokalemia; Z79.899 Other long term (current) drug therapy; Z79.51 Long term (current) use of inhaled steroids
CPT/HCPCS: 36415; 36600; 70030-TC; 70450; 71045; 82747; 83605; 83735; 84100; 84157; 84443; 85014; 85025; 85730; 86592; 87040; 87077; 87086; 87205; 89051; 92523; 92610; 93005; 97110; 97116; 97530; A4663; C1758; G0378; J0696; J1650; J2060; J3370; J3535; J7030; J7040; J7060; Q0163

== ENCOUNTER 2018-06-21 21:39 | Emergency (ER) | payer MEDICAID ==
[~2018-06-21] VITALS: Ht 170.2 cm; Wt 68.0 kg
[~2018-06-21 21:39] MED LIST changes: +QUET100T PO
--- NOTE | 2018-06-21 22:05 | NUR ---
PT BIB PRIVATE AMBULANCE FROM [facility] FOR GENERALIZED WEAKNESS AND POOR APPETITE FOR 1 DAY. PT A/OX1, ABLE TO FOLLOW SIMPLE COMMANDS. PT DENIES PAIN, C/P, SOB, N/V/D, DIZZINESS, HEADACHE. PT PRESENTS TO THE ER HYPERTENSIVE 170/105, ER NOTIFIED. PT ASSISTED TO BED W/ 2 MAN ASSIST. Addendum: 06/21/18 at 2210 by YOSVANY PT IS NON-VERBAL, BUT ABLE TO ANSWER SIMPLE QUESTIONS.
[2018-06-21] MEDS ORDERED: IV NORMAL SALINE 1000 ML BAG IV ONE (22:15)
--- NOTE | 2018-06-21 22:17 | NUR ---
TIMBER FALLER AT BEDSIDE.
[2018-06-21 22:38] LABS: BASOPHILS # (AUTO) 0.1 K/uL (0.0-8.0); BASOPHILS % (AUTO) 0.8 % (0.0-2.0); EOSINOPHILS % (AUTO) 0.5 % (0.0-7.0); HEMATOCRIT 45.5 % (36.7-47.1); HEMOGLOBIN 15.3 g/dL (12.5-16.3); LYMPHOCYTES # (AUTO) 2.2 K/uL (20.0-40.0); MEAN CORPUSCULAR HEMOGLOBIN 31.5 uug (23.8-33.4); MEAN CORPUSCULAR HGB CONC 34 g/dL (32.5-36.3); MONOCYTES # (AUTO) 1.4 K/uL (2.0-10.0); MONOCYTES % (AUTO) 13.8 % (0.0-11.0); NEUTROPHILS # (AUTO) 6.3 K/uL (1.8-8.9); NEUTROPHILS % (AUTO) 62.9 % (38.5-71.5); PLATELET COUNT (AUTO) 325 K/uL (152-348); RED BLOOD CELL COUNT(AUTO) 4.84 MIL/uL (4.06-5.63)
[2018-06-21 22:50] LABS: ETHANOL < 3 MG/DL (0-0)
[2018-06-21 22:51] LABS: ALANINE AMINOTRANSFERASE 37 U/L (16-63); ALKALINE PHOSPHATASE 115 U/L (50-136); ASPARTATE AMINOTRANSFERASE 36 U/L (15-37); BILIRUBIN,DIRECT 0.2 mg/dL (0.0-0.2); BILIRUBIN,TOTAL 0.6 mg/dL (0.2-1.0); CARBON DIOXIDE 29 mmol/L (21-32); CHLORIDE 109 mmol/L (98-107); CREATININE 1.1 mg/dL (0.6-1.3); GLUCOSE 115 mg/dL (74-106); LIPASE 133 U/L (73-393); POTASSIUM 3.9 mmol/L (3.5-5.1); TOTAL PROTEIN, SERUM 8.5 g/dL (6.4-8.2); UREA NITROGEN, BLOOD 22 mg/dL (7-18)
--- NOTE | 2018-06-21 23:15 | NUR ---
PT WILL BE D/C BACK TO [facility] VIA AMBUL, PRIVATE AMBULANCE. TRIP #[id number]. ETA 30 MIN
[2018-06-21 23:23] LABS: ACETAMINOPHEN < 2.0 ug/mL (10-30)
--- NOTE | 2018-06-21 23:39 | NUR ---
SPOKE Lashawn/ SONIA, COMMISSARY WORKER, RE PT'S RETURN TO [facility].
--- NOTE | 2018-06-21 23:43 | NUR ---
Patient discharged to home in stable conditon. Written and verbal after care instructions given. Patient verbalizes understanding of instructions. PT D/C BACK TO [facility] VIA AMBULNZ UN[address]. VSS. ALL BELONGINGS W/ PT.
[2018-06-21 23:44] VITALS: BP 167/89
--- NOTE | 2018-06-21 23:44 | NUR ---
20G L AC IV ACCESS REMOVED PRIOR TO D/C - INNER CANNULA INTACT.
== END 2018-06-21 23:46 | disposition home or self-care (01) ==
LOC: ER 21:41
DX: Z00.00 Encounter for general adult medical examination without abnormal findings (principal); I10 Essential (primary) hypertension; J44.9 Chronic obstructive pulmonary disease, unspecified; K21.9 Gastro-esophageal reflux disease without esophagitis; Z79.82 Long term (current) use of aspirin
CPT/HCPCS: 36415; 71045; 80048; 80076; 82140; 83690; 84443; 84484; 85025; 85730; 93005; 99285; G0480 ×2; G0481; 70030-TC; A4663; J7030

== ENCOUNTER 2018-07-17 13:57 | Emergency (ER) | payer MEDICAID, OTHER ==
[~2018-07-17] VITALS: Ht 170.2 cm; Wt 80.3 kg
[~2018-07-17 13:57] MED LIST changes: -QUET100T PO; -QUET200T PO
[2018-07-17] MEDS ORDERED: ESCI10TA PO (14:22)
[2018-07-17] MEDS ORDERED: SENN-18 PO (14:22)
[2018-07-17] MEDS ORDERED: QUET200T PO (14:22)
[2018-07-17] MEDS ORDERED: PRAV80TA21 PO (14:22)
[2018-07-17] MEDS ORDERED: FOLI1TAB16 PO (14:22)
[2018-07-17 14:30] LABS: BASOPHILS % (AUTO) 0.6 % (0.0-2.0); EOSINOPHILS # (AUTO) 0.1 K/uL (0.0-0.7); EOSINOPHILS % (AUTO) 0.8 % (0.0-7.0); HEMATOCRIT 42.5 % (36.7-47.1); HEMOGLOBIN 14.6 g/dL (12.5-16.3); LYMPHOCYTES % (AUTO) 24.6 % (20.5-51.5); MEAN CORPUSCULAR HGB CONC 34 g/dL (32.5-36.3); MEAN CORPUSCULAR VOLUME 93.2 fL (73.0-96.2); MONOCYTES # (AUTO) 0.8 K/uL (2.0-10.0); MONOCYTES % (AUTO) 9.4 % (0.0-11.0); NEUTROPHILS # (AUTO) 5.3 K/uL (1.8-8.9); NEUTROPHILS % (AUTO) 64.6 % (38.5-71.5); PLATELET COUNT (AUTO) 277 K/uL (152-348); RED BLOOD CELL COUNT(AUTO) 4.56 MIL/uL (4.06-5.63); WHITE BLOOD COUNT (AUTO) 8.3 K/uL (3.6-10.2)
[2018-07-17 14:41] LABS: *BILIRUBIN,URIN NEGATIVE (NEGATIVE); *BLOOD, URINE NEGATIVE (NEGATIVE); *CLARITY,URINE CLEAR (CLEAR); *COLOR,URINE YELLOW (YELLOW); *KETONES,URINE NEGATIVE (NEGATIVE); *PROTEIN,URINE NEGATIVE (NEGATIVE); *UROBILINOGEN,URINE 0.2 E.U./dl (NORMAL); LEUKOCYTE ESTERASE ,URINE NEGATIVE (NEGATIVE); NITRITE, URINE NEGATIVE (NEGATIVE); UGLUCOSE NEGATIVE (NEGATIVE)
[2018-07-17 14:44] LABS: CREATININE 0.8 mg/dL (0.6-1.3); POTASSIUM 3.6 mmol/L (3.5-5.1)
[2018-07-17 14:50] LABS: BILIRUBIN,DIRECT 0.1 mg/dL (0.0-0.2); BILIRUBIN,TOTAL 0.4 mg/dL (0.2-1.0); TOTAL PROTEIN, SERUM 8.2 g/dL (6.4-8.2)
[2018-07-17 14:55] LABS: BACTERIA,URINE NONE SEEN /HPF (NONE SEEN); RBC,URINE 0-3 /HPF (0-3); SQUAMOUS EPITHELIAL CELL,UR FEW /HPF (NONE SEEN); WBC,URINE 0-3 /HPF (0-3)
[2018-07-17 15:13] LABS: *AMPHETAMINE, URINE NEGATIVE (NEGATIVE); *BARBITURATE, URINE NEGATIVE (NEGATIVE); *CANNABINOID, URINE NEGATIVE (NEGATIVE); *COCCAINE, URINE NEGATIVE (NEGATIVE); *OPIATE, URINE NEGATIVE (NEGATIVE); *PHENCYCLIDINE SCREEN,URINE NEGATIVE (NEGATIVE)
[2018-07-17 15:14] LABS: ETHANOL < 3 MG/DL (0-0)
--- NOTE | 2018-07-17 15:42 | NUR ---
Patient is resting comfortably in bed watching TV.
--- NOTE | 2018-07-17 16:05 | NUR ---
Eduar Hernandez LCSW at the bedside for psych eval.
--- NOTE | 2018-07-17 16:43 | NUR ---
Paged Dr Porras for notification of pt's transfering [facility]. Awaiting call back.
--- NOTE | 2018-07-17 17:00 | NUR ---
Dinner provided, pt ate 100% of tray.
--- NOTE | 2018-07-17 17:03 | NUR ---
Trip # for [facility] is [id number].
--- NOTE | 2018-07-17 17:03 | NUR ---
Called for transfer to [facility], ETA for BLS transfer 2 hours.
--- NOTE | 2018-07-17 18:56 | NUR ---
Report given to Jaxon BENITO, night manager.
--- NOTE | 2018-07-17 19:22 | NUR ---
Called katt for update regarding trip. New ETA at 1940.
--- NOTE | 2018-07-17 19:55 | NUR ---
[facility] [address] here to transfer pt back to [facility].
--- NOTE | 2018-07-17 20:00 | NUR ---
Pt discharged back to [facility]. NAD noted. VSS. All belongings with pt.
[2018-07-17 20:01] VITALS: BP 143/97
== END 2018-07-17 20:02 | disposition home or self-care (01) ==
LOC: ER 13:57
DX: R45.1 Restlessness and agitation (principal); R10.9 Unspecified abdominal pain; I10 Essential (primary) hypertension; J44.9 Chronic obstructive pulmonary disease, unspecified; K21.9 Gastro-esophageal reflux disease without esophagitis; Z79.82 Long term (current) use of aspirin; Z79.899 Other long term (current) drug therapy; Z79.51 Long term (current) use of inhaled steroids
CPT/HCPCS: 36415; 71045; 74176; 80048; 80076; 80307; 81001; 83690; 84484; 85025; 87086; 93005; 99285; G0480; 70030-TC; A4663

== ENCOUNTER 2019-02-18 13:50 | Inpatient (IN) | payer MEDICARE, OTHER ==
[~2019-02-18] VITALS: Ht 170.2 cm; Wt 66.3 kg
[~2019-02-18 13:50] MED LIST changes: +ESCI10TA PO; +FOLI1TAB16 PO; +PRAV80TA21 PO; +QUET200T PO; +SENN-18 PO
[2019-02-18] MEDS ORDERED: IV NORMAL SALINE 1000 ML BAG IV ONE (14:15)
[2019-02-18 14:25] LABS: BASOPHILS # (AUTO) 0.1 K/uL (0.0-8.0); BASOPHILS % (AUTO) 0.5 % (0.0-2.0); EOSINOPHILS % (AUTO) 0.1 % (0.0-7.0); HEMATOCRIT 43.2 % (36.7-47.1); LYMPHOCYTES # (AUTO) 1.3 K/uL (20.0-40.0); LYMPHOCYTES % (AUTO) 10.2 % (20.5-51.5); MEAN CORPUSCULAR HGB CONC 33 g/dL (32.5-36.3); MEAN CORPUSCULAR VOLUME 95.4 fL (73.0-96.2); MONOCYTES # (AUTO) 1.3 K/uL (2.0-10.0); MONOCYTES % (AUTO) 10.5 % (0.0-11.0); NEUTROPHILS # (AUTO) 9.9 K/uL (1.8-8.9); NEUTROPHILS % (AUTO) 78.7 % (38.5-71.5); PLATELET COUNT (AUTO) 237 K/uL (152-348); RED BLOOD CELL COUNT(AUTO) 4.53 MIL/uL (4.06-5.63); WHITE BLOOD COUNT (AUTO) 12.6 K/uL (3.6-10.2)
[2019-02-18 14:35] LABS: POTASSIUM 3.5 mmol/L (3.5-5.1)
[2019-02-18 14:41] LABS: BILIRUBIN,DIRECT 0.2 mg/dL (0.0-0.2); BILIRUBIN,TOTAL 0.9 mg/dL (0.2-1.0); TOTAL PROTEIN, SERUM 8.1 g/dL (6.4-8.2)
--- NOTE | 2019-02-18 14:41 | NUR ---
PATIENT IS AWAKE BUT NOT VERBAL. HE OPENS HIS EYES WITH STRONG TOUCH. LABS DONE, IV STARTED. PLAED ON A MONITOR. VITAL SIGNS STABLE.
[2019-02-18 15:17] LABS: *BILIRUBIN,URIN 2+ (NEGATIVE); *COLOR,URINE DARK YELLOW (YELLOW); *KETONES,URINE 1+ (NEGATIVE); LEUKOCYTE ESTERASE ,URINE NEGATIVE (NEGATIVE); NITRITE, URINE NEGATIVE (NEGATIVE); PH,URINE 5.5 (5.0-8.0); UGLUCOSE NEGATIVE (NEGATIVE)
[2019-02-18 15:26] LABS: *BLOOD, URINE TRACE (NEGATIVE); *CLARITY,URINE SLIGHTLY HAZY (CLEAR)
[2019-02-18 15:28] LABS: MUCUS,URINE MANY /LPF (0-FEW); SQUAMOUS EPITHELIAL CELL,UR FEW /HPF (NONE SEEN); WBC,URINE 0-3 /HPF (0-3)
[2019-02-18 15:41] LABS: *AMPHETAMINE, URINE NEGATIVE (NEGATIVE); *BARBITURATE, URINE NEGATIVE (NEGATIVE); *CANNABINOID, URINE NEGATIVE (NEGATIVE); *COCCAINE, URINE NEGATIVE (NEGATIVE); *OPIATE, URINE NEGATIVE (NEGATIVE); *PHENCYCLIDINE SCREEN,URINE NEGATIVE (NEGATIVE)
--- NOTE | 2019-02-18 16:17 | NUR ---
REPORT GIVEN TO THONG HERRERA
[2019-02-18] MEDS ORDERED: CLOT15CR4 TP (16:18)
[2019-02-18] MEDS ORDERED: DILT-32 PO (16:18)
[2019-02-18] MEDS ORDERED: FOLI1TAB16 PO (16:18)
[2019-02-18] MEDS ORDERED: MOME13HF IH (16:18)
[2019-02-18] MEDS ORDERED: OMEG1000 PO (16:18)
[2019-02-18] MEDS ORDERED: THIA100T13 PO (16:18)
[2019-02-18] MEDS ORDERED: PRAV80TA21 PO (16:18)
[2019-02-18 17:00] VITALS: BP 170/95
[2019-02-18] MEDS: IV D5 1/2 NS 1000 ML 1,000 ML IV PRN (17:40)
[2019-02-18] MEDS ORDERED: ALBUTEROL SULFATE 8 GM HFA.AER.AD IH PRN (18:00)
--- NOTE | 2019-02-18 18:00 | NUR ---
Admitted 58 year old male to tele. SR on monitor. Dx: Hypernatremia and dehydration. Patient is nonverbal. AAOx1. IV on right hand intact and patent. In no acute distress. Admission assessments completed. Plan of care initiated. Safety precautions implemented. Comfort provided. Will endorse to incoming shift accordingly.
[2019-02-18] MEDS ORDERED: ALBUTEROL SULFATE 2.5 MG/3 ML NEBU NEB PRN (18:15)
--- NOTE | 2019-02-18 19:20 | NUR ---
RECEIVED PT AWAKE ON BED. PT SHOWS NO SIGNS OF ACUTE DISTRESS. PT IV INTACT. SAFETY AND COMFORT PROVIDED. WILL CONTINUE TO MONITOR.
[2019-02-18 20:00] VITALS: BP 156/106
--- NOTE | 2019-02-18 20:01 | NUR ---
TELEPHONE CALL TO [facility], SPOKE TO NURSE DAMEON REGARDING PATIENT CODE STATUS. PER DAMEON, PATIENT IS FULL CODE. NO COPIES OF POLST OR ADVANCE DIRECTIVE AT [facility] PER DAMEON SO PATIENT IS CONSIDER FULL CODE.
[2019-02-18] MEDS: FAMOTIDINE 20 MG TABLET PO SCH (20:10)
[2019-02-18] MEDS: AMMONIUM LACTATE 12% LOTION 225 GM BOTTLE TP SCH (20:10)
[2019-02-18] MEDS: HALOPERIDOL 5 MG TABLET PO PRN (20:10)
[2019-02-18] MEDS: CLOTRIMAZOLE/BETAMET DIPROP CREAM 15 GM TUBE TP SCH (21:00)
[2019-02-18 22:00] VITALS: BP 130/94
[2019-02-19] VITALS: BP 114/79
[2019-02-19 04:00] VITALS: BP 154/93
--- NOTE | 2019-02-19 04:29 | NUR ---
HANDS OFF REPORT TO AGNES BENITO. PT SHOWS NO SIGNS OF ACUTE DISTRESS. PT IV INTACT. PRESCRIBED MEDICATION GIVEN AND PT TOLERATED IT WELL. PT TURNED AND REPOSITIONED. SAFETY AND COMFORT PROVIDED. WILL CONTINUE TO MONITOR.
--- NOTE | 2019-02-19 04:45 | NUR ---
Received report from [facility], patient is resting in bed. No signs of acute distress noted. Sinus rhythm in the 80s on the TELE monitor. IVF running. Bed is low and locked, call light within reach. Will continue to monitor.
[2019-02-19] MEDS: IV D5 1/2 NS 1000 ML 1,000 ML IV PRN ×2 (05:42→21:43)
[2019-02-19 06:20] LABS: CREATININE 0.9 mg/dL (0.6-1.3); PHOSPHOROUS 2.3 mg/dL (2.5-4.9); POTASSIUM 3.4 mmol/L (3.5-5.1)
[2019-02-19 06:40] LABS: BASOPHILS % (AUTO) 0.5 % (0.0-2.0); EOSINOPHILS # (AUTO) 0.1 K/uL (0.0-0.7); EOSINOPHILS % (AUTO) 1.1 % (0.0-7.0); HEMATOCRIT 40.1 % (36.7-47.1); HEMOGLOBIN 13.3 g/dL (12.5-16.3); LYMPHOCYTES # (AUTO) 1.7 K/uL (20.0-40.0); LYMPHOCYTES % (AUTO) 20.1 % (20.5-51.5); MEAN CORPUSCULAR HEMOGLOBIN 31.7 uug (23.8-33.4); MEAN CORPUSCULAR HGB CONC 33 g/dL (32.5-36.3); MEAN CORPUSCULAR VOLUME 95.5 fL (73.0-96.2); MONOCYTES # (AUTO) 1.2 K/uL (2.0-10.0); MONOCYTES % (AUTO) 14.3 % (0.0-11.0); NEUTROPHILS # (AUTO) 5.4 K/uL (1.8-8.9); PLATELET COUNT (AUTO) 210 K/uL (152-348); WHITE BLOOD COUNT (AUTO) 8.4 K/uL (3.6-10.2)
[2019-02-19] MEDS: ASPIRIN EC 81 MG TABLET.DR PO SCH (08:28)
[2019-02-19] MEDS: QUETIAPINE FUMARATE 200 MG TABLET PO SCH ×2 (08:28→17:00)
[2019-02-19] MEDS: OMEGA-3 FATTY ACIDS/FISH OIL CAPSULE PO SCH (08:29)
[2019-02-19] MEDS: SENNOSIDES 1 TABLET PO SCH (08:29)
[2019-02-19] MEDS: FLUTICASONE PROP NASAL SPRAY 16 GM BOTTLE NS SCH (08:29)
[2019-02-19] MEDS: MULTIVITAMINS,THERAPEUTIC TABLET PO SCH (08:29)
[2019-02-19] MEDS: LORATADINE 10 MG TABLET PO SCH (08:29)
[2019-02-19] MEDS: DILTIAZEM HCL CD 120 MG CAP.SR.24H PO SCH (08:29)
[2019-02-19] MEDS: FOLIC ACID 1 MG TABLET PO SCH (08:29)
[2019-02-19] MEDS: THIAMINE HCL 100 MG TABLET PO SCH (08:29)
[2019-02-19] MEDS: FAMOTIDINE 20 MG TABLET PO SCH ×2 (08:29→20:33)
[2019-02-19] MEDS: AMMONIUM LACTATE 12% LOTION 225 GM BOTTLE TP SCH ×2 (08:33→17:42)
[2019-02-19] MEDS ORDERED: HOME MED MISCELLANEOUS PO SCH ×2 (09:00)
[2019-02-19] MEDS ORDERED: HOME MED MISCELLANEOUS INH SCH (09:00)
[2019-02-19 11:20] VITALS: BP 112/74
[2019-02-19] MEDS: CLOTRIMAZOLE/BETAMET DIPROP CREAM 15 GM TUBE TP SCH ×2 (13:00→20:35)
[2019-02-19] MEDS ORDERED: NEUTRA PHOS PACKET PO ONE (14:15)
[2019-02-19] MEDS ORDERED: MAGNESIUM HYDROXIDE 30 ML LIQUID UDC PO PRN (14:30)
[2019-02-19 15:16] VITALS: BP 104/57
[2019-02-19] MEDS ORDERED: POTASSIUM CHLORIDE 20 MEQ TAB.PRT.SR PO ONE (15:45)
--- NOTE | 2019-02-19 19:20 | NUR ---
RECEIVED PT ON BED. PT CAN SAY "YES" . PT SHOWS NO SIGNS OF ACUTE DISTRESS. IV INTACT.SAFETY AND COMFORT PROVIDED. ALL NEEDS ARE MET. WILL CONTINUE TO MONITOR.
[2019-02-19 20:00] VITALS: BP 116/70
[2019-02-19] MEDS: ATORVASTATIN 20 MG TABLET PO SCH (20:33)
[2019-02-20 00:11] VITALS: BP 144/89
[2019-02-20] MEDS: HALOPERIDOL 5 MG TABLET PO PRN (00:44)
[2019-02-20 04:00] VITALS: BP 157/88
--- NOTE | 2019-02-20 06:23 | NUR ---
PT SLEPT INTERMITTENTLY. PT SHOWS NO SIGNS OF ACUTE DISTRESS. PT IV INTACT. PRESCRIBED MEDICATION GIVEN AND PT TOLERATED IT WELL. PT HAD 1 BOWEL MOVEMENT. PT CAN SPEAK YES OR NO. CAN FOLLOW COMMANDS BUT FORGETFUL.PT TURNED AND REPOSITIONED. SAFETY AND COMFORT PROVIDED.ALL NEEDS ARE MET. WILL ENDORSE ACCORDINGLY TO INCOMING NURSE FOR CONTINUITY OF CARE.
[2019-02-20 06:42] VITALS: BP 133/86
[2019-02-20 07:07] LABS: BASOPHILS # (AUTO) 0.1 K/uL (0.0-8.0); BASOPHILS % (AUTO) 0.7 % (0.0-2.0); EOSINOPHILS # (AUTO) 0.2 K/uL (0.0-0.7); EOSINOPHILS % (AUTO) 2.7 % (0.0-7.0); HEMOGLOBIN 12.4 g/dL (12.5-16.3); LYMPHOCYTES # (AUTO) 1.6 K/uL (20.0-40.0); LYMPHOCYTES % (AUTO) 21.8 % (20.5-51.5); MEAN CORPUSCULAR HEMOGLOBIN 31.7 uug (23.8-33.4); MEAN CORPUSCULAR HGB CONC 34 g/dL (32.5-36.3); MEAN CORPUSCULAR VOLUME 94.4 fL (73.0-96.2); MONOCYTES % (AUTO) 13.6 % (0.0-11.0); NEUTROPHILS # (AUTO) 4.6 K/uL (1.8-8.9); NEUTROPHILS % (AUTO) 61.2 % (38.5-71.5); PLATELET COUNT (AUTO) 218 K/uL (152-348); RED BLOOD CELL COUNT(AUTO) 3.92 MIL/uL (4.06-5.63); WHITE BLOOD COUNT (AUTO) 7.5 K/uL (3.6-10.2)
[2019-02-20 07:12] LABS: CARBON DIOXIDE 28 mmol/L (21-32); CHLORIDE 105 mmol/L (98-107); CREATININE 0.6 mg/dL (0.6-1.3); GLUCOSE 111 mg/dL (74-106); MAGNESIUM 1.6 mg/dL (1.8-2.4); PHOSPHOROUS 3.2 mg/dL (2.5-4.9); UREA NITROGEN, BLOOD 4 mg/dL (7-18)
[2019-02-20 07:20] LABS: POTASSIUM 2.8 mmol/L (3.5-5.1)
--- NOTE | 2019-02-20 07:30 | NUR ---
Awake, confused. Not in distress. IVF infusing. Bed alarm on
--- NOTE | 2019-02-20 07:38 | NUR ---
CALLED [facility] FOR CRITICAL LAB OF POTASSIUM 2.8 THAT WAS GIVEN BY NEELA AT [id number]. WAITING FOR CALL BACK. PT STABLE. ENDORSE TO DAYSHIFT NURSE.
[2019-02-20 07:44] LABS: THYROID STIMULATING HORMONE 1.518 mIU/mL (0.358-3.740)
[2019-02-20] MEDS ORDERED: POTASSIUM CHLORIDE 20 MEQ TAB.PRT.SR PO ONE ×2 (08:15→14:00)
--- NOTE | 2019-02-20 08:15 | NUR ---
Dr. Segovia called back, informed of K level 2.8 with order
[2019-02-20 08:29] LABS: BAND % (MANUAL) 1 % (0-10); BASOPHILS % (MANUAL) 0 % (0-2); EOSINOPHILS % (MANUAL) 2 % (0-8); LYMPHOCYTES % (MANUAL) 21 % (20-40); MONOCYTES % (MANUAL) 10 % (2-10); NEUTROPHILS % (MANUAL) 66 % (42-75)
[2019-02-20] MEDS ORDERED: MAGNESIUM SULFATE/D5W 100 ML IV SCH (09:00)
[2019-02-20] MEDS: FLUTICASONE PROP NASAL SPRAY 16 GM BOTTLE NS SCH (09:45)
[2019-02-20] MEDS: DILTIAZEM HCL CD 120 MG CAP.SR.24H PO SCH (09:45)
[2019-02-20] MEDS: ASPIRIN EC 81 MG TABLET.DR PO SCH (09:46)
[2019-02-20] MEDS: OMEGA-3 FATTY ACIDS/FISH OIL CAPSULE PO SCH (09:46)
[2019-02-20] MEDS: FAMOTIDINE 20 MG TABLET PO SCH ×2 (09:46→20:42)
[2019-02-20] MEDS: FOLIC ACID 1 MG TABLET PO SCH (09:46)
[2019-02-20] MEDS: LORATADINE 10 MG TABLET PO SCH (09:46)
[2019-02-20] MEDS: QUETIAPINE FUMARATE 200 MG TABLET PO SCH ×2 (09:47→17:34)
[2019-02-20] MEDS: SENNOSIDES 1 TABLET PO SCH (09:47)
[2019-02-20] MEDS: MULTIVITAMINS,THERAPEUTIC TABLET PO SCH (09:47)
[2019-02-20] MEDS: THIAMINE HCL 100 MG TABLET PO SCH (09:47)
[2019-02-20] MEDS: CLOTRIMAZOLE/BETAMET DIPROP CREAM 15 GM TUBE TP SCH ×2 (09:47→20:42)
[2019-02-20] MEDS: AMMONIUM LACTATE 12% LOTION 225 GM BOTTLE TP SCH ×2 (09:48→17:36)
--- NOTE | 2019-02-20 10:00 | NUR ---
Assisted out of bed by PT, assisted by 2, ambulated outside of the room. Had to moderate amount. Incontinence care and skin care done
[2019-02-20] MEDS: IV D5 1/2 NS 1000 ML 1,000 ML IV PRN ×2 (10:05→23:04)
[2019-02-20 11:37] VITALS: BP 104/70
--- NOTE | 2019-02-20 14:55 | NUR ---
WOUND CARE CONSULT: PT PRESENTS WITH BLANCHABLE REDNESS TO SACRAL/BUTTOCKS AREA AND BRUISING TO LOWER EXTREMITIES, PRESENT ON ADMISSION. PT IS INCONTINENT. RECOMMENDATIONS MADE FOR SKIN PROTECTION. DISCUSSED WITH NURSING STAFF. WILL SEE PRN. LEAL IN AGREEMENT WITH PLAN OF CARE.
[2019-02-20] MEDS ORDERED: Z GUARD REMEDY PASTE 57 GM TUBE TOP PRN (15:00)
[2019-02-20 15:21] VITALS: BP 110/73
--- NOTE | 2019-02-20 19:05 | NUR ---
Received patient in bed asleep, easily arousable, A&Ox1. Not in distress at this time. Kept bed in low position, locked w/ side rails up x 2. Call light within reach. Will continue to monitor
[2019-02-20 20:22] VITALS: BP 101/68
[2019-02-20] MEDS: ATORVASTATIN 20 MG TABLET PO SCH (20:42)
[2019-02-20] MEDS: Z GUARD REMEDY PASTE 57 GM TUBE TOP SCH (20:50)
[2019-02-21 06:00] VITALS: BP 105/72
--- NOTE | 2019-02-21 06:12 | NUR ---
Patient slept well throughout the night, no distress noted. Attended all needs. Ensured safety and comfort. Turned to sides every 2 hours. No other untoward events noted.
[2019-02-21 06:30] LABS: BASOPHILS % (AUTO) 0.6 % (0.0-2.0); EOSINOPHILS # (AUTO) 0.2 K/uL (0.0-0.7); HEMATOCRIT 38.9 % (36.7-47.1); HEMOGLOBIN 12.9 g/dL (12.5-16.3); LYMPHOCYTES # (AUTO) 1.7 K/uL (20.0-40.0); LYMPHOCYTES % (AUTO) 29.4 % (20.5-51.5); MEAN CORPUSCULAR HEMOGLOBIN 31.7 uug (23.8-33.4); MEAN CORPUSCULAR HGB CONC 33 g/dL (32.5-36.3); MEAN CORPUSCULAR VOLUME 95.1 fL (73.0-96.2); MONOCYTES # (AUTO) 0.7 K/uL (2.0-10.0); MONOCYTES % (AUTO) 12.4 % (0.0-11.0); NEUTROPHILS % (AUTO) 53.6 % (38.5-71.5); PLATELET COUNT (AUTO) 217 K/uL (152-348); RED BLOOD CELL COUNT(AUTO) 4.09 MIL/uL (4.06-5.63); WHITE BLOOD COUNT (AUTO) 5.7 K/uL (3.6-10.2)
[2019-02-21 06:43] LABS: BILIRUBIN,TOTAL 0.4 mg/dL (0.2-1.0); CREATININE 0.7 mg/dL (0.6-1.3); PHOSPHOROUS 3.3 mg/dL (2.5-4.9); POTASSIUM 4.1 mmol/L (3.5-5.1); TOTAL PROTEIN, SERUM 6.5 g/dL (6.4-8.2)
[2019-02-21] MEDS ORDERED: ALBU2.5V7 NEB (07:29)
[2019-02-21] MEDS ORDERED: ATOR20TA PO (07:29)
[2019-02-21] MEDS: LORATADINE 10 MG TABLET PO SCH (08:01)
[2019-02-21] MEDS: THIAMINE HCL 100 MG TABLET PO SCH (08:01)
[2019-02-21] MEDS: MULTIVITAMINS,THERAPEUTIC TABLET PO SCH (08:01)
[2019-02-21] MEDS: ASPIRIN EC 81 MG TABLET.DR PO SCH (08:01)
[2019-02-21] MEDS: SENNOSIDES 1 TABLET PO SCH (08:01)
[2019-02-21] MEDS: QUETIAPINE FUMARATE 200 MG TABLET PO SCH ×2 (08:01→16:50)
[2019-02-21] MEDS: FAMOTIDINE 20 MG TABLET PO SCH (08:01)
[2019-02-21] MEDS: FOLIC ACID 1 MG TABLET PO SCH (08:02)
[2019-02-21] MEDS: OMEGA-3 FATTY ACIDS/FISH OIL CAPSULE PO SCH (08:07)
[2019-02-21] MEDS: FLUTICASONE PROP NASAL SPRAY 16 GM BOTTLE NS SCH (08:07)
[2019-02-21] MEDS: Z GUARD REMEDY PASTE 57 GM TUBE TOP SCH (08:09)
[2019-02-21] MEDS: CLOTRIMAZOLE/BETAMET DIPROP CREAM 15 GM TUBE TP SCH (08:09)
[2019-02-21] MEDS: AMMONIUM LACTATE 12% LOTION 225 GM BOTTLE TP SCH ×2 (08:11→16:54)
[2019-02-21] MEDS: DILTIAZEM HCL CD 120 MG CAP.SR.24H PO SCH (08:11)
[2019-02-21 11:59] VITALS: BP 114/66
--- NOTE | 2019-02-21 15:06 | NUR ---
PATIENT IS DISCHARGING [facility], REPORT GIVEN TO JAH, PATIENT IS IN STABLE CONDITION. NO ACUTE DISTRESS NOTED AT THIS TIME
[2019-02-21 15:24] VITALS: BP 106/55
--- NOTE | 2019-02-21 17:55 | NUR ---
PATIENT DISCHARGED TO [facility], IV REMOVED, ID BAND REMOVED, STABLE CONDITION, ALERT, ORIENTED X1, NO SOB, RESP EVEN NONLABORED,SKIN WARM AND DRY TO TOUCH, NO ACUTE DISTRESS NOTED, DISCHARGE PACKET GIVEN TO [facility], REPORT GIVEN TO FACILITY NAME JAH. BELONGINGS ARE ACCOUNTED AND SIGNED.
== END 2019-02-21 17:50 | DRG 640 ==
LOC: ER 13:52 → TELE3 16:15 → MEDSURG3 02-20 15:25
PROVIDERS: ADMIT Internal Medicine Nephrology; ATTEND Internal Medicine Nephrology
DX: E87.0 Hyperosmolality and hypernatremia (principal); N17.0 Acute kidney failure with tubular necrosis; E86.0 Dehydration; R62.7 Adult failure to thrive; F03.90 Unspecified dementia, unspecified severity, without behavioral disturbance, psychotic disturbance, mood disturbance, and anxiety; J44.9 Chronic obstructive pulmonary disease, unspecified; I48.91 Unspecified atrial fibrillation; E78.5 Hyperlipidemia, unspecified
CPT/HCPCS: 36415; 51702; 70030-TC; 71045; 80307; 83605; 83690; 83735; 84100; 84443; 85025; 85730; 87040; 87086; 92526; 92610; 93005; 97110; 97116; 97530; A4663; C1758; G0378; J3475; J3490; J3535